=== PATIENT | female | born 1945 | race Asian ===

== ENCOUNTER 2022-04-09 14:51 | Inpatient (IN) | payer OTHER ==
[~2022-04-09] VITALS: Ht 149.9 cm; Wt 50.2 kg
[2022-04-09] MEDS ORDERED: HYDROCODONE/ACETAMINOPHEN 5/325MG TABLET PO ONE (18:30)
[2022-04-09 20:16] LABS: CHLORIDE 98 mEq/L (98-107); HEMATOCRIT 40.5 % (36.0-48.0); HEMOGLOBIN 13.6 g/dL (12.0-16.0); MEAN CORPUSCULAR HEMOGLOBIN 28.9 pg (28.0-32.0); MEAN CORPUSCULAR VOLUME 86.2 fL (81.0-99.0); PLATELET 202 x1000/uL (130-400); RED CELL DISTRIBUTION WIDTH 14.4 % (11.6-14.6)
[2022-04-10] MEDS ORDERED: AMLO5TAB88 PO (03:18)
[2022-04-10] MEDS ORDERED: HYDR12.54 PO (03:18)
[2022-04-10] MEDS ORDERED: ATEN100T PO (03:18)
[2022-04-10 03:39] VITALS: BP 150/68
[2022-04-10 04:00] VITALS: BP 150/68
[2022-04-10] MEDS ORDERED: ASPI-1497 PO (04:18)
[2022-04-10] MEDS ORDERED: MORPHINE SULFATE 2 MG/ML CPJ (NOT FOR IM USE) IV PRN (05:45)
[2022-04-10 08:00] VITALS: BP 148/70
[2022-04-10 10:00] LABS: BASOPHILS % 0.7 % (0.0-2.0); EOSINOPHILS % 1.4 % (0.0-5.0); HEMATOCRIT. 41.9 % (36.0-48.0); HEMOGLOBIN. 14.2 g/dL (12.0-16.0); LYMPHOCYTES % 23.8 % (20.0-50.0); MEAN CORPUSCULAR HEMOGLOBIN 29.2 pg (28.0-32.0); MEAN PLATELET VOLUME 8.4 fl (7.4-10.4); MONOCYTES % 7.9 % (2.0-8.0); NEUTROPHILS % 66.2 % (40.0-76.0); PLATELET 228 x1000/uL (130-400); RED BLOOD CELL COUNT 4.87 mill/uL (4.2-5.4); RED CELL DISTRIBUTION WIDTH 14.4 % (11.6-14.6)
[2022-04-10 10:09] LABS: CHLORIDE 102 mEq/L (98-107)
[2022-04-10] MEDS: HYDROCHLOROTHIAZIDE 12.5MG CAPSULE PO SCH (10:53)
[2022-04-10] MEDS: ATENOLOL 50 MG TABLET PO SCH (10:58)
[2022-04-10] MEDS: AMLODIPINE 5MG TABLET PO SCH (10:59)
[2022-04-10] MEDS ORDERED: NALOXONE HCL 0.4MG/ML VIAL IV PRN (11:00)
[2022-04-10] MEDS: IBUPROFEN 800MG TABLET PO SCH ×2 (11:34→20:00)
[2022-04-10 11:35] VITALS: BP 115/66
[2022-04-10] MEDS ORDERED: POTASSIUM CHLORIDE 20MEQ TABLET SR PO NR (12:30)
[2022-04-10 16:00] VITALS: BP 122/85
[2022-04-10 20:00] VITALS: BP 147/52
[2022-04-11] VITALS: BP 114/74
[2022-04-11 04:00] VITALS: BP 102/57
[2022-04-11] MEDS: IBUPROFEN 800MG TABLET PO SCH ×2 (04:00→12:00)
[2022-04-11 08:00] VITALS: BP 154/72
[2022-04-11 08:57] LABS: CHLORIDE 104 mEq/L (98-107)
[2022-04-11] MEDS: ATENOLOL 50 MG TABLET PO SCH (10:00)
[2022-04-11] MEDS: AMLODIPINE 5MG TABLET PO SCH (10:00)
[2022-04-11] MEDS: HYDROCHLOROTHIAZIDE 12.5MG CAPSULE PO SCH (10:00)
[2022-04-11 12:00] VITALS: BP 149/63
[2022-04-11 14:11] VITALS: BP 149/63
[2022-04-12] MEDS ORDERED: ASPIRIN 81MG EC TABLET PO SCH (09:00)
== END 2022-04-11 18:48 | disposition home or self-care (01) | DRG 200 ==
LOC: ER 14:51 → MICUSO 21:49 → EDBEDREQ 21:57 → 7WST 04-10 03:13 → 6EST 04-11 12:01
PROVIDERS: ADMIT Internal Medicine; ATTEND Internal Medicine
DX: S27.0XXA Traumatic pneumothorax, initial encounter (principal); E44.1 Mild protein-calorie malnutrition; S22.42XA Multiple fractures of ribs, left side, initial encounter for closed fracture; E87.1 Hypo-osmolality and hyponatremia; I10 Essential (primary) hypertension; E87.6 Hypokalemia; R74.01 Elevation of levels of liver transaminase levels; Z68.22 Body mass index [BMI] 22.0-22.9, adult; V49.9XXA Car occupant (driver) (passenger) injured in unspecified traffic accident, initial encounter; Y93.89 Activity, other specified; Y92.89 Other specified places as the place of occurrence of the external cause; Y99.8 Other external cause status
CPT/HCPCS: 36415; 71045; 71101; 80048; 80053; 85025; 85027; 93005; 97162; 99291

== ENCOUNTER 2022-04-14 17:13 | Inpatient (IN) | payer OTHER ==
[~2022-04-14] VITALS: Ht 149.9 cm; Wt 53.1 kg
[~2022-04-14 17:13] MED LIST: AMLO5TAB88 PO; ASPI-1497 PO; ATEN100T PO; HYDR12.54 PO
[2022-04-14] MEDS ORDERED: LIDOCAINE HCL/EPINEPHRINE 1%-EPI 1:100,000 20 ML VIAL INFIL ONE (18:30)
[2022-04-14] MEDS ORDERED: ACETAMINOPHEN 325MG TABLET PO ONE (18:30)
[2022-04-14] MEDS ORDERED: LIDOCAINE HCL 1% 20ML VIAL (Pyxis) INJ INFIL ONE (19:15)
[2022-04-14] MEDS ORDERED: MIDAZOLAM HCL 2 MG/2 ML VIAL IV ONE (20:15)
[2022-04-15] MEDS ORDERED: NALOXONE HCL 0.4MG/ML VIAL IV PRN (12:45)
[2022-04-15] MEDS ORDERED: ALBUTEROL (0.083%) 2.5MG/3ML NEB HHN PRN (12:45)
[2022-04-15] MEDS ORDERED: ACETAMINOPHEN 325MG TABLET PO PRN ×2 (12:45→15:45)
[2022-04-15] MEDS ORDERED: HYDROCODONE/ACETAMINOPHEN 5/325MG TABLET PO PRN ×2 (12:45→15:45)
[2022-04-15] MEDS ORDERED: CLONIDINE 0.1MG TABLET PO PRN (15:45)
[2022-04-15] MEDS ORDERED: ONDANSETRON HCL 4MG/2ML INJ IV PRN (15:45)
[2022-04-15] MEDS: HYDROCHLOROTHIAZIDE 25MG TABLET PO SCH (15:45)
[2022-04-15 15:56] VITALS: BP 132/65
[2022-04-15 16:09] VITALS: BP 132/65
[2022-04-15 18:36] LABS: HEPATITIS B SURFACE ANTIGEN NEGATIVE
[2022-04-15 20:00] VITALS: BP 137/78
[2022-04-16] VITALS (7 sets, daily range): BP systolic 108–142; BP diastolic 60–74
[2022-04-16 06:52] LABS: BASOPHILS % 0.7 % (0.0-2.0); EOSINOPHILS % 4.4 % (0.0-5.0); HEMATOCRIT. 35.6 % (36.0-48.0); HEMOGLOBIN. 12.2 g/dL (12.0-16.0); LYMPHOCYTES % 23.8 % (20.0-50.0); MEAN CORPUSCULAR HEMOGLOBIN 29.1 pg (28.0-32.0); MEAN CORPUSCULAR VOLUME 84.9 fL (81.0-99.0); MEAN PLATELET VOLUME 7.4 fl (7.4-10.4); MONOCYTES % 10.8 % (2.0-8.0); NEUTROPHILS % 60.3 % (40.0-76.0); PLATELET 231 x1000/uL (130-400); RED CELL DISTRIBUTION WIDTH 14.3 % (11.6-14.6)
[2022-04-16 07:19] LABS: CHLORIDE 104 mEq/L (98-107)
[2022-04-16] MEDS: ENOXAPARIN 30MG/0.3ML SYR SUBCUT SCH (09:15)
[2022-04-16] MEDS: HYDROCHLOROTHIAZIDE 25MG TABLET PO SCH (09:16)
[2022-04-16] MEDS: ATENOLOL 50 MG TABLET PO SCH (09:17)
[2022-04-16] MEDS: AMLODIPINE 5MG TABLET PO SCH (09:18)
[2022-04-16] MEDS ORDERED: IBUPROFEN 600MG TABLET PO PRN (15:30)
[2022-04-17] VITALS: BP 120/81
[2022-04-17 04:00] VITALS: BP 136/71
[2022-04-17 08:00] VITALS: BP 139/76
[2022-04-17] MEDS: HYDROCHLOROTHIAZIDE 25MG TABLET PO SCH (08:47)
[2022-04-17] MEDS: ATENOLOL 50 MG TABLET PO SCH (08:47)
[2022-04-17] MEDS: AMLODIPINE 5MG TABLET PO SCH (08:47)
[2022-04-17] MEDS: ENOXAPARIN 30MG/0.3ML SYR SUBCUT SCH (08:48)
[2022-04-17 10:31] LABS: CHLORIDE 102 mEq/L (98-107)
[2022-04-17] MEDS: HYDROCHLOROTHIAZIDE 12.5MG CAPSULE PO SCH (11:19)
[2022-04-17 12:06] VITALS: BP 130/70
[2022-04-17] MEDS: POTASSIUM CHLORIDE 10MEQ TABLET SR PO SCH (12:18)
[2022-04-17] MEDS ORDERED: DEXTROSE 50% WATER 50ML SYRINGE IV PRN (13:15)
[2022-04-17] MEDS ORDERED: LIDOCAINE 5% PATCH TOP SCH (13:30)
[2022-04-17 16:00] VITALS: BP 115/60
[2022-04-17] MEDS: BLOOD SUGAR DIAGNOSTIC STRIP TEST SCH ×2 (16:50→21:00)
[2022-04-17 20:00] VITALS: BP 133/54
[2022-04-18] VITALS: BP 136/61
[2022-04-18 04:00] VITALS: BP 128/66
[2022-04-18 05:21] LABS: BASOPHILS % 0.7 % (0.0-2.0); EOSINOPHILS % 4.1 % (0.0-5.0); HEMATOCRIT. 38.6 % (36.0-48.0); HEMOGLOBIN. 13.2 g/dL (12.0-16.0); LYMPHOCYTES % 24.6 % (20.0-50.0); MEAN CORPUSCULAR HEMOGLOBIN 29.5 pg (28.0-32.0); MEAN CORPUSCULAR VOLUME 86.2 fL (81.0-99.0); MEAN PLATELET VOLUME 7.5 fl (7.4-10.4); MONOCYTES % 10.7 % (2.0-8.0); NEUTROPHILS % 59.9 % (40.0-76.0); PLATELET 273 x1000/uL (130-400); RED BLOOD CELL COUNT 4.48 mill/uL (4.2-5.4); RED CELL DISTRIBUTION WIDTH 14.2 % (11.6-14.6)
[2022-04-18] MEDS: BLOOD SUGAR DIAGNOSTIC STRIP TEST SCH ×4 (06:50→21:00)
[2022-04-18] MEDS: POTASSIUM CHLORIDE 10MEQ TABLET SR PO SCH (07:54)
[2022-04-18] MEDS: AMLODIPINE 5MG TABLET PO SCH (07:55)
[2022-04-18] MEDS: ATENOLOL 50 MG TABLET PO SCH (07:55)
[2022-04-18 08:00] VITALS: BP 148/68
[2022-04-18] MEDS: HYDROCHLOROTHIAZIDE 12.5MG CAPSULE PO SCH (08:05)
[2022-04-18] MEDS: ENOXAPARIN 40MG/0.4ML SYR SUBCUT SCH (08:05)
[2022-04-18 08:48] LABS: CHLORIDE 101 mEq/L (98-107)
[2022-04-18 12:00] VITALS: BP 128/56
[2022-04-18 16:06] VITALS: BP 136/72
[2022-04-18 20:00] VITALS: BP 123/59
[2022-04-19] VITALS: BP 141/69
[2022-04-19 04:00] VITALS: BP 141/65
[2022-04-19] MEDS: BLOOD SUGAR DIAGNOSTIC STRIP TEST SCH ×4 (06:31→21:00)
[2022-04-19 08:00] VITALS: BP 156/76
[2022-04-19] MEDS: HYDROCHLOROTHIAZIDE 12.5MG CAPSULE PO SCH (08:29)
[2022-04-19] MEDS: POTASSIUM CHLORIDE 10MEQ TABLET SR PO SCH (08:30)
[2022-04-19] MEDS: ATENOLOL 50 MG TABLET PO SCH (08:31)
[2022-04-19] MEDS: AMLODIPINE 5MG TABLET PO SCH (08:31)
[2022-04-19] MEDS: ENOXAPARIN 40MG/0.4ML SYR SUBCUT SCH (08:34)
[2022-04-19 12:00] VITALS: BP 116/80
[2022-04-19 16:00] VITALS: BP 123/72
[2022-04-19] MEDS ORDERED: NON FORMULARY PATIENT HOME MED XX SCH (16:00)
[2022-04-19] MEDS ORDERED: MELATONIN 3MG TABLET PO PRN (16:30)
[2022-04-19 20:00] VITALS: BP 120/51
[2022-04-20] VITALS: BP 107/56
[2022-04-20 04:16] VITALS: BP 120/76
[2022-04-20] MEDS: BLOOD SUGAR DIAGNOSTIC STRIP TEST SCH ×2 (06:32→11:50)
[2022-04-20] MEDS: POTASSIUM CHLORIDE 10MEQ TABLET SR PO SCH (07:52)
[2022-04-20] MEDS: HYDROCHLOROTHIAZIDE 12.5MG CAPSULE PO SCH (07:52)
[2022-04-20] MEDS: AMLODIPINE 5MG TABLET PO SCH (07:53)
[2022-04-20] MEDS: ATENOLOL 50 MG TABLET PO SCH (07:53)
[2022-04-20] MEDS: ENOXAPARIN 40MG/0.4ML SYR SUBCUT SCH (07:53)
[2022-04-20 08:00] VITALS: BP 138/66
[2022-04-20 12:01] VITALS: BP 106/62
[2022-04-20 13:56] VITALS: BP 106/62
== END 2022-04-20 15:55 | disposition home health service (06) | DRG 199 ==
LOC: ER 17:13 → MICUSO 23:01 → 3WST 04-15 15:39
PROVIDERS: ADMIT Internal Medicine; ATTEND Internal Medicine
PROC: 0W9B30Z Drainage of Left Pleural Cavity with Drainage Device, Percutaneous Approach (ICD-10-PCS; principal; 2022-04-14)
DX: S27.0XXA Traumatic pneumothorax, initial encounter (principal); J96.00 Acute respiratory failure, unspecified whether with hypoxia or hypercapnia; S22.42XA Multiple fractures of ribs, left side, initial encounter for closed fracture; I10 Essential (primary) hypertension; E87.6 Hypokalemia; R73.9 Hyperglycemia, unspecified; R53.81 Other malaise; R26.9 Unspecified abnormalities of gait and mobility; V89.2XXA Person injured in unspecified motor-vehicle accident, traffic, initial encounter; Y93.89 Activity, other specified; Y92.410 Unspecified street and highway as the place of occurrence of the external cause; Y99.8 Other external cause status
CPT/HCPCS: 36415; 71045; 71250; 80048; 82962; 83036; 85025; 86803; 87340; 97116; 97162; 97166; 99285; J1650; J2250; J3490